=== PATIENT | female | born 1960 | race African-American/Black ===

== ENCOUNTER 2019-02-09 10:59 | Day surgery (SDC) | payer MEDICARE ==
[2019-02-08 12:57] VITALS: BMI 33.7
[~2019-02-09 10:59] MED LIST: Lidocaine 1% PF 5 ML VIAL ONE; PROPOFOL 200 MG/20 ML VIAL ONE; ePHEDrine 50 MG/ML VIAL ONE
[2019-02-09] MEDS ORDERED: Oxymetazoline HCl 0.05% ( 15 ML ) ONE (11:52)
[2019-02-09] MEDS ORDERED: EPINEPHrine 1 MG/ML AMP ONE (14:07)
[2019-02-09] MEDS ORDERED: Sodium Chloride 0.9% 0 ML ONE (14:07)
[2019-02-09] MEDS ORDERED: Oxymetazoline HCl 0.05% (30 ML BOT) ONE (14:09)
[2019-02-09] MEDS ORDERED: Fentanyl 100 MCG/2 ML VIAL ONE ×3 (14:16→15:51)
--- NOTE | 2019-02-10 09:34 | OP ---
DATE OF PROCEDURE: 02/09/2019 PREOPERATIVE DIAGNOSES: 1. Epistaxis. 2. Hereditary hemorrhagic telangiectasia. POSTOPERATIVE DIAGNOSES: 1. Epistaxis. 2. Hereditary hemorrhagic telangiectasia. PROCEDURES PERFORMED: 1. Bilateral nasal endoscopy with cauterization of multiple telangiectasias and destruction of lesions. 2. Bilateral nasal endoscopy with control of nasal hemorrhage and epistaxis. DESCRIPTION OF PROCEDURE: After consent was obtained, the patient was identified and brought to the OR, placed on the table in supine position. General endotracheal anesthesia was obtained and the patient was positioned for surgery. The nose was decongested with topical Afrin and we proceeded with systematic nasal endoscopy. I estimate that nearly 100 individual lesions were cauterized that were distributed along the septum, floor of the mouth and lateral nasal wall, and inferior turbinates, this was done bilaterally with bipolar cautery. At the completion of the procedure, the patient was awakened, extubated, and taken to the recovery room in stable condition prior to discharge home. Job ID: [id number]
--- NOTE | 2019-02-10 16:44 | EKG ---
Test Reason : PREOP Blood Pressure : / mmHG Vent. Rate : 053 BPM Atrial Rate : 053 BPM P-R Int : 178 ms QRS Dur : 102 ms QT Int : 444 ms P-R-T Axes : 054 043 040 degrees QTc Int : 416 ms Sinus bradycardia Otherwise normal ECG No previous ECGs available Confirmed by DR. Carlton FREY ([id number]) on 02/10/2019 4:44:06 PM Referred By: TOÑA Confirmed By:DR. Carlton FREY
== END 2019-02-09 17:30 | disposition home or self-care (01) ==
LOC: SDC 10:59
PROVIDERS: ATTEND Specialist
PROC: 093K8ZZ Control Bleeding in Nasal Mucosa and Soft Tissue, Via Natural or Artificial Opening Endoscopic (ICD-10-PCS; principal; 2019-02-09)
PROC: 095K8ZZ Destruction of Nasal Mucosa and Soft Tissue, Via Natural or Artificial Opening Endoscopic (ICD-10-PCS; 2019-02-09)
DX: R04.0 Epistaxis (principal); I78.0 Hereditary hemorrhagic telangiectasia; M19.90 Unspecified osteoarthritis, unspecified site; I10 Essential (primary) hypertension; D64.9 Anemia, unspecified; Z79.899 Other long term (current) drug therapy; Z91.041 Radiographic dye allergy status
CPT/HCPCS: 36415; 85014; 93005; 93010; J0171; J3010